=== PATIENT | male | born 1980 | race African-American/Black ===

== ENCOUNTER 2020-11-30 13:10 | Emergency (ER) | payer OTHER ==
[~2020-11-30] VITALS: Ht 190.5 cm; Wt 83.9 kg
[2020-11-30] MEDS ORDERED: NORCO5 PO (14:30)
[2020-11-30] MEDS ORDERED: IBUPROFEN 600600 M1 PO (14:30)
[2020-11-30 14:38] VITALS: BP 150/65
== END 2020-11-30 14:40 | disposition home or self-care (01) ==
LOC: M.ERS 13:10
DX: M25.572 Pain in left ankle and joints of left foot (principal); Z88.8 Allergy status to other drugs, medicaments and biological substances; Z91.018 Allergy to other foods